=== PATIENT | female | born 1940 | race Caucasian/White ===

== ENCOUNTER 2020-08-12 07:50 | Outpatient (REF) | payer MEDICARE, OTHER, SELFPAY ==
[2020-08-12 08:56] LABS: MANUAL DIFF FLAG NO
[2020-08-12 09:02] LABS: Basophils Percent Auto 0.9 % (0-2); Eosinophils Absolute Auto 0.1 X10*3/uL (0.0-0.4); Eosinophils Percent Auto 2.4 % (0-4); Hematocrit 39.6 % (37-47); Hemoglobin 13.1 g/dl (12.0-16.0); Imm Gran Abs Auto 0.01 X10*3/uL (0.00-0.03); Imm Gran Pct Auto 0.2 % (0.0-0.4); Lymphocytes Absolute Auto 0.9 X10*3/uL (1.2-4.9); Lymphocytes Percent Auto 18.5 % (20-40); Mean Corpuscular HGB Conc 33.1 g/dl (31.0-35.0); Mean Corpuscular Hemoglobin 33.1 pg (27.0-33.0); Mean Platelet Volume 10.2 fL (9.4-12.3); Monocytes Absolute Auto 0.6 X10*3/uL (0.1-1.2); Monocytes Percent Auto 13.5 % (2-11); Neutrophils Percent Auto 64.5 % (45-73); Platelet Count 165 X10*3/uL (160-400); Red Blood Count 3.96 X10*6/uL (4.20-5.50); Red Cell Distribution Width 13.2 % (11.0-16.0); White Blood Count 4.7 X10*3/uL (4.8-10.8)
[2020-08-12 09:08] LABS: Glucose Urine UA NEG (NEG); Leukocyte Esterase Urine NEG (NEG); Nitrite Urine NEG (NEG); Specific Gravity - Urine 1.025 (1.005-1.025); Urine Blood NEG (NEG); Urine Ketones NEG (NEG); Urine Protein NEG (NEG-TRACE)
[2020-08-12 09:12] LABS: Appearance Urine CLEAR; Color Urine YELLOW; UACC Culture Trigger NO
[2020-08-12 09:21] LABS: Mucus Urine 1+ /LPF; RBC Urine 0 /HPF (0); Squamous Epithelial Cell Urine 1+ /LPF; WBC Urine 0 /HPF (0-4)
[2020-08-12 09:29] LABS: Alanine Aminotransferase 47 U/L (0-31); Albumin Level 3.7 g/dL (3.5-5.0); Alkaline Phosphatase 44 U/L (39-117); Anion Gap 11 (12-20); Aspartate Amino Transferase 34 U/L (5-31); Bilirubin Total 0.6 mg/dL (0.0-1.0); Blood Urea Nitrogen 16 mg/dL (9-16); Calcium 8.6 mg/dL (8.4-10.2); Carbon Dioxide 26 mmol/L (22-29); Chloride 108 mmol/L (96-108); Cholesterol 190 mg/dL; Estimated Glomerular Filt Rate 43; Glucose Fasting 93 mg/dL (60-99); HDL Cholesterol 71 mg/dL; LDL Cholesterol Calculated 107 mg/dl; Potassium 5.2 mmol/l (3.3-5.1); Sodium 140 mmol/L (135-145); Total Protein 5.9 g/dL (6.5-8.0); Triglycerides 62 mg/dL
[2020-08-12 09:38] LABS: TSH reflex Free T4 1.81 mIU/mL (0.32-4.0)
== END 2020-08-12 07:51 | disposition home or self-care (01) ==
LOC: HO.LAB 07:50
PROVIDERS: PCP Internal Medicine; Visit Provider Internal Medicine
DX: E78.5 Hyperlipidemia, unspecified (principal); I10 Essential (primary) hypertension; I48.0 Paroxysmal atrial fibrillation; E55.9 Vitamin D deficiency, unspecified; E66.3 Overweight
CPT/HCPCS: 36415; 80053; 80061; 81003; 81015; 82306; 84443; 85025

== ENCOUNTER 2020-08-16 10:41 | Outpatient (REF) | payer MEDICARE, OTHER, SELFPAY ==
[2020-08-16 12:00] LABS: B Type Natriuretic Peptide 791 pg/mL (<100)
== END 2020-08-16 10:42 | disposition home or self-care (01) ==
LOC: HO.LAB 10:41
PROVIDERS: PCP Internal Medicine; Visit Provider Internal Medicine
DX: R06.00 Dyspnea, unspecified (principal); R60.0 Localized edema
CPT/HCPCS: 83880

== ENCOUNTER → 2020-08-18 07:53 | Outpatient (REF) | payer MEDICARE, OTHER, SELFPAY ==
--- NOTE | 2020-08-18 08:03 | CA_ITS ---
Transthoracic Echocardiogram Patient (Last, First, Middle): Dixie Anthony, Gender: Female Date of : 1940 Age: 80 Procedure Date: 08/18/2020 Procedure Type: Transthoracic Echocardiogram Location: OP Height: 162.56 cm Weight: 70.31 kg BSA: 1.76 m2 Heart Rate: bpm BP: 148 / 64 mmHg Quantitative Equity Head: Referring MD: Prabhakar Palmer MD Symptoms: dyspnea Study Quality: Good ECG Rhythm: Sinus with PACs Conclusions: - The left ventricular systolic function is normal. The visually estimated ejection fraction is between 55-60%. - Evidence suggests grade II (moderate) diastolic dysfunction. - There is mild tricuspid valve regurgitation. - Mild pulmonary hypertension is present. Findings Left Ventricle There is mildly increased left ventricular wall thickness. The left ventricular systolic function is normal. The visually estimated ejection fraction is between 55-60%. There is no evidence of regional wall motion abnormalities. E/E prime ratio is between 8 and 15 consistent with indeterminate filling pressures. Evidence suggests grade II (moderate) diastolic dysfunction. Top-normal LV size. Right Ventricle Normal right ventricular cavity size. There is low normal right ventricular systolic function. Atria The left atrium is moderately dilated. The right atrium is normal in size. Aortic Valve There is a normal trileaflet aortic valve. There is no aortic valve stenosis. There is no aortic valve regurgitation. Mitral Valve There is mild mitral annular calcification. There is bowing of the posterior mitral leaflet without obvious prolapse. There is mild mitral valve regurgitation. There is no mitral valve stenosis. Pulmonic Valve The pulmonic valve was not well visualized. There is trace pulmonic valve regurgitation. Tricuspid Valve Normal tricuspid valve structure. There is mild tricuspid valve regurgitation. The right ventricular systolic pressure is 42 mmHg. Mild pulmonary hypertension is present. Great Vessels The aortic annulus, sinuses of valsalva, and asc aorta are normal in size. Venous The inferior vena cava is mildly dilated and collapses greater than 50% with inspiration. Pericardium/Pleural There is a trivial pericardial effusion. Prior Study Comparison No prior study available for comparison. Measurements 2D Linear Measurements RVIDd: 2.67 RVIDd Index: 1.52 IVSd: 1.15 0.6-0.9/0.6-1.0 cm LVIDd: 5.68 3.9-5.3/4.2-5.9 cm LVIDd Index: 3.23 2.4-3.2/2.2-3.1 cm/m2 LVIDs: 4.34 2.0-3.6 cm LVPWd: 1.07 0.7-1.1 cm Ao Root: 3.60 2.1-3.5 cm LA Diam: 4.60 2.7-3.8/3.0-4.0 cm LAIDs Index: 2.61 1.5-2.3 cm/m2 LV Mass: 322.18 67-162/88-224 g LV Mass Index: 183.06 43-95/49-115 g/m2 LVOT Diam: 2.10 3.0+(-)1.3 cm 2D Systolic Function EF 4C: 54.50 >55% EF 2C: 55.50 >55% EF BiP: 56.10 >55% Mitral Valve MV Pk E: 0.82 MV PK A: 0.36 MV Decel Time: 243.00 E/A: 2.30 E'Lateral: 11.60 E'Medial: 4.03 E/E' Med: 20.20 E/E' Lat: 7.00 MR Vol - PW Dopp: 41.00 MR VTI: 2.05 MR ERO: 20.00 MR Alias Rodrigo: 0.38 MR RAD: 0.70 Aortic Valve AoV Pk Rodrigo: 1.21 AoV Mn Rodrigo: 0.90 AoV VTI: 0.30 AoV Pk Grad: 6.00 Aov Mn Grad: 4.00 CLIFTON Cont.VTI: 2.02 LVOT LVOT Pk Rodrigo: 0.75 LVOT Mn Rodrigo: 0.49 LVOT VTI: 0.18 LVOT Pk Grad: 2.00 LVOT Mn Grad: 1.00 LVOT Diam: 2.10 LVOT Area: 3.46 Diastolic Function MV Pk E: 0.82 MV Pk A: 0.36 E/A: 2.30 E'Medial: 4.03 E/E' Med: 20.20 E' Laterial: 11.60 E/E' Lat: 7.00 Tricuspid Valve TR Pk Rodrigo: 2.93 TR Pk Grad: 34.00 RA Press: 8.00 RVSP: 42.00 Great Vessels Aorta Ao Root-2D: 3.60 2.0-3.7 cm Ao Asc: 3.30 2.1-3.4 cm Ao Arch: 3.20 Updated in Other Vendor System with Status of Final Sam Herring MD electronically signed on 08/18/2020 4:11:55 PM with status of Final
== END ==
LOC: HO.CARD 07:53
PROVIDERS: PCP Internal Medicine; Visit Provider Internal Medicine
DX: R06.00 Dyspnea, unspecified (principal); I49.1 Atrial premature depolarization
CPT/HCPCS: 93306